=== PATIENT | male | born 1965 | race Caucasian/White ===

== ENCOUNTER 2021-10-07 11:24 | Emergency (ER) | payer OTHER, SELFPAY ==
--- NOTE | 2021-10-07 11:29 | ED.DIZZY ---
HPI - Dizziness General Chief Complaint: Dizziness Stated Complaint: Dizzy Time Seen by Provider: 10/07/21 11:41 Source: patient and RN notes reviewed Mode of arrival: ambulatory Limitations: no limitations History of Present Illness HPI Narrative: 56-year-old male presents with concerns for dizziness and vomiting that started this morning. Reports symptoms started when he awoke and had one episode of vomiting at home. Reports he had an episode of vomiting in the exam room. He denies any headache, thunderclap headache, vision changes, weakness in any extremity, difficulty swallowing or difficulty speaking. He denies nasal congestion, rhinorrhea, sore throat, cough, shortness of breath, abdominal pain, diarrhea. Denies history of vertigo, reports with history of tinnitus. MD elicited complaint: dizziness Related Data Allergies Allergy/AdvReac Type Severity Reaction Status Date / Time No Known Allergies Allergy Unverified 09/30/17 11:08 Review of Systems Review of Systems: CONSTITUTIONAL: Denies malaise, chills, sweats, or fever. EYES: Denies visual changes, redness, or discharge. ENT: Denies rhinorrhea, congestion, sinus pain, otalgia or sore throat. CARDIOVASCULAR: Denies chest pain, palpitations, or edema. RESPIRATORY: Denies cough or dyspnea. GASTROINTESTINAL: Denies abdominal pain, nausea, diarrhea. Reports 2 episodes of vomiting MUSCULOSKELETAL: Denies back pain, joint pain, or myalgia. NEUROLOGIC: Denies numbness, weakness, or headache. Reports dizziness PSYCHIATRIC: Denies anxiety or depression. All systems reviewed & are unremarkable except as noted in HPI and below PMFSH Past Medical History Medical History (Updated 10/07/21 @ 12:16 by Kathie Cerrato NP) Hyperlipidemia Normal colonoscopy 2017 Surgical History Surgical History (Updated 10/24/19 @ 13:37 by Julieth Clark) History of hernia surgery 2007 History of knee surgery 1985 ACL [place] teeth extracted 2013 Family History Family History (Updated 10/24/19 @ 13:38 by Julieth Clark) Mother Family history of chronic obstructive pulmonary disease Father Throat cancer Skin cancer Other Acute myocardial infarction Social History Social History (Updated 10/24/19 @ 13:35 by Julieth Clark) Smoking status: Former smoker Smoking end date: 10/18/89 Alcohol intake: current Alcohol use details: 6 drinks of beer/wine per week Substance use: never Substance use type: does not use Comments At time of signature, agree with nursing past medical, surgical, social and family history. There is no relevant family history pertinent to the presenting complaint Exam Narrative: GENERAL: Well-appearing, well-nourished, and in no acute distress. HEAD: Normocephalic, atraumatic. EYES: PERRLA, sclera clear, and EOMI. No nystagmus. ENT: Nares clear, turbinates pink, no rhinorrhea or epistaxis. Mucous membranes moist. TM pearly damon with sharp light reflex bilaterally; no tragal tenderness. Oropharynx without erythema or lesions. Tonsils not enlarged and without exudate. NECK: Supple. No lymphadenopathy. No jugular venous distension. Carotids were easily palpable bilaterally. CHEST: No respiratory distress. Clear to auscultation. No bony deformities, no asymmetry. Speaks in full sentences. HEART: Regular rate and rhythm. No murmur heard. EXTREMITIES: Grossly normal range of motion. No edema. Normal strength and sensation. SKIN: Warm, dry, no visible rash. NEURO: Alert and oriented x3. No focal deficits. Cranial nerves II through XII grossly intact. Reflexes intact. No limb drift PSYCH: Normal mood and affect Course Course Emergency Course: Discussed limited diagnostic capability at [facility], discussed transfer to emergency department for further evaluation. Patient is aware of diagnosis, understands and agrees to treatment plan. Anticipatory guidance given. Patient agrees to follow-up as directed and is aware of reason
[2021-10-07 11:32] VITALS: BP 155/97; PULSE 68; RESP 18; TEMP 36; O2SAT 97
== END 2021-10-07 12:28 | disposition home or self-care (01) ==
PROVIDERS: Emergency Provider Nurse Practitioner
DX: R42 Dizziness and giddiness (principal); Z20.822 Contact with and (suspected) exposure to COVID-19; Z87.891 Personal history of nicotine dependence; E78.5 Hyperlipidemia, unspecified
CPT/HCPCS: 87426; 87804; 99213; C9803; G0463

== ENCOUNTER 2024-05-11 10:28 | Emergency (ER) | payer OTHER, SELFPAY ==
[2024-05-11 10:37] VITALS: BP 135/87; PULSE 66; RESP 16; TEMP 36.4; O2SAT 97
--- NOTE | 2024-05-11 10:53 | ED.URI ---
HPI - URI/Sore Throat General Chief Complaint: Upper Respiratory Infection Stated Complaint: Covid Symptoms Time Seen by Provider: 05/11/24 10:41 Source: patient and RN notes reviewed Mode of arrival: ambulatory Limitations: no limitations History of Present Illness HPI Narrative: Patient presents today complaining of positive COVID test 2 days ago with symptoms that started 3 days ago at home to include fatigue, cough, congestion. Reports he did have a fever but this has since resolved. Denies shortness of breath, chest pain, chest congestion. He has been taking ibuprofen, Silvana-[place] Plus, and NyQuil with some relief. No history of asthma or COPD. He is a nonsmoker. He presents today wondering if he needs any prescription COVID-19 medication to help with his symptoms. Related Data Home Medications Medication Instructions Recorded Confirmed No Home Medications 05/11/24 05/11/24 Allergies Allergy/AdvReac Type Severity Reaction Status Date / Time No Known Allergies Allergy Verified 05/11/24 10:34 Review of Systems Review of Systems: CONSTITUTIONAL: Denies body aches, fever, chills, or sweats.+ T EYES: Denies visual changes, redness, or discharge. ENT: Denies rhinorrhea, sore throat, or otalgia.+ congestion CARDIOVASCULAR: Denies chest pain, palpitations, or edema. RESPIRATORY: Denies dyspnea.+ cough GASTROINTESTINAL: Denies abdominal pain, nausea, vomiting, or diarrhea. GENITOURINARY: Denies dysuria or hematuria. SKIN: Denies rash, itching, or wounds. MUSCULOSKELETAL: Denies back pain, joint pain, or myalgia. NEUROLOGIC: Denies headache, numbness, tingling, or weakness. PSYCH: Denies depression or anxiety. [facility] Past Medical History Medical History Hyperlipidemia Normal colonoscopy 2017 Surgical History Surgical History History of hernia surgery 2007 History of knee surgery 1985 ACL [place] teeth extracted 2013 Family History Family History Mother Family history of chronic obstructive pulmonary disease Father Throat cancer Skin cancer Other Acute myocardial infarction Social History Social History Smoking status: Former smoker Smoking end date: 10/18/89 Alcohol intake: current Alcohol use details: 6 drinks of beer/wine per week Substance use: never Substance use type: does not use Comments At time of signature, I have reviewed and agree with nursing past medical, surgical, social and family history unless otherwise noted. Please see nursing chart for further information. There is no relevant family history pertinent to the presenting complaint Exam Narrative: GENERAL: Well-appearing, well-nourished, and in no acute distress. HEAD: Normocephalic, atraumatic. EYES: EOMI. No redness or drainage. Conjunctivae normal. ENT: Mucous membranes pink and moist. Nares clear. No rhinorrhea. TMs normal bilaterally. Throat normal. Uvula midline. NECK: Normal AROM. Supple. No lymphadenopathy. CHEST: No respiratory distress. Clear to auscultation. HEART: Regular rate and rhythm. No murmur appreciated. EXTREMITIES: Normal range of motion. No edema. SKIN: Warm, dry, no rash. Capillary refill normal. Normal skin turgor. NEURO: No focal deficits. Alert and oriented x3. Gait steady. PSYCH: Normal affect. No signs of depression or anxiety. Course Course Level of Care: Express Care Visit Vital Signs Vital signs: Vital Signs Temperature 97.5 F L 05/11/24 10:37 Pulse Rate 66 05/11/24 10:37 Respiratory Rate 16 05/11/24 10:37 Blood Pressure 135/87 05/11/24 10:37 Pulse Oximetry 97 05/11/24 10:37 Temperature 97.5 F L 05/11/24 10:37 Pulse Rate 66 05/11/24 10:37 Respiratory Rate 16 05/11/24 10:37
== END 2024-05-11 10:55 | disposition home or self-care (01) ==
PROVIDERS: Emergency Provider Nurse Practitioner; PCP Family Medicine
DX: U07.1 COVID-19 (principal); Z87.891 Personal history of nicotine dependence; E78.5 Hyperlipidemia, unspecified
CPT/HCPCS: 99211; G0463